=== PATIENT | male | born 1960 | race Caucasian/White ===

== ENCOUNTER 2017-02-27 05:50 | Day surgery (SDC) | payer OTHER ==
[2017-02-27] VITALS (8 sets, daily range): BP systolic 131–163; BP diastolic 61–81; PULSE 44–54; RESP 12–24; Ht 165.1 cm; Wt 64.0 kg
[~2017-02-27] VITALS: Ht 165.1 cm; Wt 64.0 kg
[2017-02-27] MEDS ORDERED: CLINDAMYCIN 600 MG/D5W (PMX) 50 ML IVPB SCH (06:00)
[2017-02-27] MEDS ORDERED: FER325 PO (07:43)
[2017-02-27] MEDS ORDERED: DICL50TA11 PO (07:43)
[2017-02-27] MEDS ORDERED: DICL75TA2 PO (07:43)
[2017-02-27] MEDS ORDERED: SOD CHLORIDE 0.9% 1,000 ML IV SCH (08:00)
[2017-02-27] MEDS ORDERED: POLYMYXIN/BACITRACIN 1L IRRIG ONE (09:50)
[2017-02-27] MEDS ORDERED: BUPIVACAINE 0.25% (MPF) 30 ML INJ ONE (09:50)
[2017-02-27] MEDS ORDERED: FENTAnyl 50 MCG/ML VIAL ONE (09:56)
[2017-02-27] MEDS ORDERED: LIDOCAINE 2% (SDV) 5 ML INJ ONE (09:57)
[2017-02-27] MEDS ORDERED: ROCURONIUM 50 MG INJ ONE (09:57)
[2017-02-27] MEDS ORDERED: PROPOFOL 20 ML ONE (09:57)
[2017-02-27] MEDS ORDERED: OXYCODONE/ACETAMINOPHEN (5/325) TAB PO PRN ×2 (10:00)
[2017-02-27] MEDS ORDERED: MEPERIDINE 25 MG INJ IV PRN (10:00)
[2017-02-27] MEDS ORDERED: METOCLOPRAMIDE 10 MG INJ IV PRN (10:00)
[2017-02-27] MEDS ORDERED: HYDROmorphONE (0.2 MG/ML) 10ML SYG IV PRN ×3 (10:00)
[2017-02-27] MEDS ORDERED: FENTAnyl 50 MCG/ML VIAL IV PRN ×3 (10:00)
[2017-02-27] MEDS ORDERED: EPHEDrine SULFATE 50 MG/5 ML SYG IV PRN (10:00)
[2017-02-27] MEDS ORDERED: hydrALAzine 20 MG INJ IV PRN (10:00)
[2017-02-27] MEDS ORDERED: DIPHENHYDRAMINE 50 MG INJ IV PRN (10:00)
[2017-02-27] MEDS ORDERED: KETOROLAC 30 MG INJ IV PRN (10:00)
[2017-02-27] MEDS ORDERED: LABETALOL HCL 20MG INJ IV PRN (10:00)
[2017-02-27] MEDS ORDERED: ONDANSETRON 4 MG INJ IV PRN (10:00)
[2017-02-27] MEDS ORDERED: BUPIVACAINE 0.25% (MPF) 30 ML INJ INJ ONE (10:28)
[2017-02-27] MEDS ORDERED: SUGAMMADEX SODIUM 200 MG/2 ML VIAL IV ONE (10:39)
[2017-02-27] MEDS ORDERED: HYDROCODONE/APAP (5/325) TAB PO ONE (11:00)
--- NOTE | 2017-02-27 11:01 | OPR ---
Date/Time of Note Date/Time of Note DATE: 02/27/17 TIME: 10:58 Operative Report Procedure Date: Feb 27, 2017 Preoperative Diagnosis left inguinal hernia Postoperative Diagnosis same Operation/Procedure Performed 1. open left incarcerated inguinal hernia repair with large ultrapro hernia system mesh 2. 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 He requests surgical repair. Risks alternatives benefits and personnel were discussed with the patient. Patient expresses understanding and consents to the operation. Procedure Description Patient is taken to the OR and prepped and draped in usual sterile fashion. Surgical timeout was performed. IV antibiotics given. Left inguinal oblique incision is made with a 10 blade. Dissection cautery is carried down to the external oblique fascia. 15 blade is used to open the external oblique. This incision is extended medially inferiorly lateral superiorly with Metzenbaum scissors. Cord structures were identified and encircled with a [place] drain. Very large indirect hernia is reduced manually. The distal portion of the ultrapure hernia system mesh was used to secure this area with a running 0 Prolene from the pubic tubercle along the shelving edge of the inguinal ligament. The disc is also secured to intra-oblique with interrupted 3-0 Vicryl. [place]lay mesh is secured in a similar fashion with a running 0 Prolene from the pubic tubercle along the shelving of the inguinal ligament. Superiorly the onlay mesh is secured to intra-oblique with interrupted 3-0 Vicryl. Structure creating reapproximated around the cord structures to re- create the inguinal ring with interrupted 0 Prolene. External oblique fascia is closed running 3-0 Vicryl. Naima's fascia is closed with interrupted 3-0 Vicryl. Skin is closed and skin trinh. Therapeutic subcutaneous local anesthesia is injected throughout the incision site. Dry dressings were applied. Reynold CASTRO Feb 27, 2017 11:01
== END 2017-02-27 13:13 | disposition home or self-care (01) ==
LOC: SDS 05:50
PROVIDERS: ATTEND Surgery
DX: K40.90 Unilateral inguinal hernia, without obstruction or gangrene, not specified as recurrent (principal); I10 Essential (primary) hypertension; K74.60 Unspecified cirrhosis of liver; M19.90 Unspecified osteoarthritis, unspecified site; Z88.0 Allergy status to penicillin
CPT/HCPCS: 49507; C1781; J1170; J2405; J3010; Z7512; Z7610

== ENCOUNTER 2017-03-06 09:58 | Emergency (ER) | payer OTHER ==
[~2017-03-06] VITALS: Ht 170.2 cm; Wt 61.1 kg
[~2017-03-06 09:58] MED LIST: DICL50TA11 PO; DICL75TA2 PO; FER325 PO
[2017-03-06 10:04] VITALS: Ht 170.2 cm; Wt 61.1 kg
[2017-03-06] MEDS ORDERED: HYDROmorphONE 1 MG/ML SYG IV STA (10:17)
[2017-03-06] MEDS ORDERED: ONDANSETRON 4 MG INJ IV STA (10:17)
[2017-03-06] MEDS ORDERED: LACTATED RINGER'S 1,000 ML IV ONE (10:30)
[2017-03-06] MEDS ORDERED: HYDR-906 PO (10:53)
[2017-03-06 10:54] LABS: BASOPHILS % 0.3 % (0.0-2.0); EOSINOPHILS # 0.1 10^3/ul (0.0-0.5); EOSINOPHILS % 0.6 % (0.0-7.0); HEMATOCRIT 33.2 % (42.0-52.0); HEMOGLOBIN 11.2 g/dl (14.0-18.0); LYMPHOCYTES # 1.6 10^3/ul (0.8-2.9); LYMPHOCYTES % 20.6 % (15.0-51.0); MEAN CORPUSCULAR HEMOGLOBIN 31.2 pg (29.0-33.0); MEAN CORPUSCULAR HGB CONC 33.7 g/dl (32.0-37.0); MEAN CORPUSCULAR VOLUME 92.5 fl (82.0-101.0); MEAN PLATELET VOLUME 8.6 fl (7.4-10.4); MONOCYTE # 0.5 10^3/ul (0.3-0.9); MONOCYTES % 6.8 % (0.0-11.0); NEUTROPHIL # 5.6 10^3/ul (1.6-7.5); NEUTROPHILS % 71.1 % (39.0-77.0); PLATELET COUNT 210 10^3/UL (140-415); RED BLOOD COUNT 3.59 10^6/ul (4.70-6.10); RED CELL DISTRIBUTION WIDTH 13.5 % (11.5-14.5); WHITE BLOOD COUNT 7.9 10^3/ul (4.8-10.8)
[2017-03-06 11:10] LABS: CALCIUM 9.1 mg/dl (8.4-10.2); CREATININE 0.74 mg/dl (0.61-1.24)
--- NOTE | 2017-03-06 11:24 | RADRPT ---
PROCEDURE: CT ABDOMEN AND PELVIS WITHOUT CONTRAST. CLINICAL INDICATION: Lower abdominal pain TECHNIQUE: CT scan of the abdomen and pelvis without contrast was performed on a multidetector hig h-resolution CT scanner. The patient was scanned without intravenous contrast. Coronal and sagittal reformatted images were obtained from the axial source images. Images were reviewed on a high-resol Bandwidth PACS workstation. The total exam CTDI equals 9.4 mGy and the total exam DLP equals 494 mGy-cm. One or more of the following dose reduction techniques were used: Automated exposure control. Adjustment of the mA and/or kV according to patient size. Use of iterative reconstruction technique. DICOM images are available COMPARISON: None FINDINGS: CT abdomen: The lung bases are clear. The heart size is within limits. There is no significant pericardial effus ion. Hepatic morphology is within limits. No gross contour deforming masses. Multiple gallstones are note d within the lumen of the gallbladder. No evidence of intrahepatic or extrahepatic biliary dilatatio n. The spleen and pancreas are within normal limits. Both adrenal glands are within normal limits. Both kidneys are in normal anatomic position. No evidence of obstruction or hydronephrosis. No gross renal/ureteric calculi. The visualized GI tract demonstrate normal caliber loops of small and large bowel. No evidence of lizzette wel obstruction. Stool filled loops of large bowel suggestive of constipation is identified. The lorin endix is within normal limits. Mild atherosclerotic calcification of the aorta is identified. There is no significant retroperitone al lymphadenopathy. CT pelvis: The bladder is within limits. The prostate gland is normal size. There is a 2.8 x 2.3 cm complex col lection, with adjacent hyperdensity within the left lower pelvis along the left external iliac chain , which appears to communicate with a large hyperdense mass, within the left anterior lower abdomen extending into the left inguinal canal, measuring 12.3 x 4.3 x 4.8 cm. Findings are likely consisten t with a large hematoma. Overlying lower abdominal surgical skin trinh are noted. There is diffuse atherosclerotic calcifications. 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 Osteoarthritic changes of the left hip is noted. There is multilevel degenerative disease of the lumbosacral spine. IMPRESSION: 1. LARGE 12.3 X 4.3 X 4.8 CM HYPERDENSE MASS WITHIN THE LOWER LEFT ANTERIOR ABDOMINAL WALL WITH OVER LYING SKIN TRINH, WHICH EXTENDS INTO THE LEFT INGUINAL CANAL, MOST LIKELY CONSISTENT WITH A LARGE HEMATOMA. CORRELATE WITH RECENT SURGICAL HISTORY. THERE IS ALSO A 2.8 X 2.3 CM COMPLEX COLLECTION WI TH ADJACENT HYPERDENSITY WITHIN THE LEFT LOWER PELVIS ALONG THE LEFT EXTERNAL ILIAC CHAIN, WHICH LORIN EARS TO COMMUNICATE WITH THE LEFT INGUINAL HEMATOMA, ALSO MOST LIKELY CONSISTENT WITH POSTSURGICAL C HANGES AND HEMATOMA. 2. Cholelithiasis. 3. No evidence of bowel obstruction. Stool and air filled loops of large bowel suggestive of constip ation. The appendix is within normal limits. 4. Diffuse atherosclerotic disease. 5. Severe osteoarthritis in 8 - necrosis of the right hip. Osteoarthritic changes the left hip. 6. Multilevel degenerative disease of the lumbosacral spine. RPTAT: AAPP Physician Sherif Date Time Electronically viewed and signed by Physician Sherif on 03/06/2017 11:24 NAM/
[2017-03-06 11:26] LABS: INR 1.19; PROTIME 15.2 Sec (12.2-14.2); PT RATIO 1.2
[2017-03-06 11:27] LABS: PARTIAL THROMBOPLASTIN TIME 33.6 Sec (25.0-35.0)
--- NOTE | 2017-03-06 11:33 | RADRPT ---
PROCEDURE: Scrotal ultrasound CLINICAL INDICATION: Scrotal pain and swelling. S/P left inguinal hernia repair. TECHNIQUE: Scrotal ultrasound was performed with sagittal and transverse views. Urias scale and co sav[place] imaging was performed. Images were reviewed on high resolution PACS monitors. COMPARISON: Concurrent CT scan performed the same day. FINDINGS: Right Testis: Size: 3.4 x 1.6 x 2.5 cm Echotexture: Normal. Color flow: Normal. Lesions: None. Left Testis: Size: 2.6 x 2.1 x 2.2 cm Echotexture: Normal. Color flow: Normal. Lesions: None. Right Epididymis: Size: Normal. Echotexture: Normal. Color flow: Normal. Lesions: None. Left Epididymis: Size: Engorged and enlarged. Echotexture: Diffusely heterogeneous. Color flow: Increased vascular flow. Lesions: None. Additional Findings: Hydrocele: Mild left Soft Tissues: Large left superior scrotal hematoma. Varicocele: None. IMPRESSION: 1. Large left superior scrotal hematoma. 2. Enlarged engorged heterogeneous left epididymis. 3. Mild left-sided hydrocele. RPTAT: PP .Tuan Alvares MD, MD Date Time Electronically viewed and signed by .Tuan Alvares MD, on 03/06/2017 11:32 .B/
--- NOTE | 2017-03-06 11:59 | ERD ---
ER Documentation Chief Complaint Chief Complaint hernia repair 02/27/17, abd pain, left right testicu pain/swelling x 3 days HPI This is a pleasant 56-year-old male who had a left inguinal hernia repair by Dr. Paz on 02/27. The patient presents with persistent swelling and pain to the left inguinal region and testicle. The pain is 6 out of 10 throbbing and worse with movement. He denies any fevers or chills, no nausea or vomiting. ROS All systems reviewed and are negative except as per history of present illness. Medications Home Meds Active Scripts Docusate Sodium* (Colace*) 100 Mg Capsule, 100 MG PO TID Y for CONSTIPATION, # 30 CAP Prov:STEPHANIE REGALADO MD 03/06/17 Ondansetron (Ondansetron Odt) 4 Mg Tab.rapdis, 4 MG PO Q6H Y for NAUSEA AND/OR VOMITING, #30 TAB Prov:STEPHANIE REGALADO MD 03/06/17 Hydrocodone/Acetaminophen ([place] 10-325 Tablet) 1 Each Tablet, 1 TAB PO Q6H Y for PAIN, #12 TAB Prov:STEPHANIE REGALADO MD 03/06/17 Reported Medications Hydrocodone/Acetaminophen ([place] 5-325 Tablet) 1 Each Tablet, 1 EACH PO Q6, TAB 03/06/17 Diclofenac Sodium* (Diclofenac Sodium*) 75 Mg Tablet.dr, 75 MG PO TID Y for PAIN , #90 TAB 02/27/17 Diclofenac Sodium* (Diclofenac Sodium*) 50 Mg Tablet.dr, 50 MG PO BID, #60 TAB 02/27/17 Ferrous Sulfate* (Ferrous Sulfate*) 325 Mg Tabec, 325 MG PO DAILY, TAB 02/27/17 Allergies Allergies: Coded Allergies: Penicillins (Verified Allergy, Unknown, RASH ALL OVER BODY, 03/06/17) PMhx/Soc History of Surgery: Yes (LT FOOT FRACTURE REPAIR, INGUINAL HERNIA REPAIR ) Anesthesia Reaction: No Hx Neurological Disorder: No Hx Respiratory Disorders: No Hx Cardiac Disorders: No Hx Psychiatric Problems: No Hx Miscellaneous Medical Probl: No Hx Alcohol Use: Yes (STOPPED 2 YRS AGO) Hx Substance Use: No Hx Tobacco Use: No Smoking Status: Never smoker FmHx Family History: No diabetes Physical Exam Vitals Vital Signs Date Time Temp Pulse Resp B/P Pulse Ox O2 Delivery O2 Flow Rate FiO2 03/06/17 10:04 97.6 65 18 108/73 98 Physical Exam General: Well developed, well nourished, no acute distress Head: Normocephalic, atraumatic. Eyes: Pupils equally reactive, EOM intact ENT: Moist mucous membranes Neck: Supple, no lymphadenopathy Respiratory: Lungs clear bilaterally, no distress Cardiovascular: RRR, no murmurs, rubs, or gallops Abdominal: Soft, left inguinal region, surgical wound is intact. There is a firm mass underneath the surgical site that appears to extend into the left scrotum no erythema or dehiscence, + ecchymoses noted. : Left scrotum with firmness into the scrotal sac, difficult to articulate the testicle. MSK: No edema, no unilateral swelling, 5/5 strength Neurologic: Alert and oriented, moving all extremities, normal speech, no focal weakness, no cerebellar signs Skin: No rash Psych: Normal mood Result Diagram: 03/06/17 1030 03/06/17 1030 Results 24 hrs Laboratory Tests Test 03/06/17 10:30 White Blood Count 7.910^3/ul Red Blood Count 3.5910^6/ul Hemoglobin 11.2g/dl Hematocrit 33.2% Mean Corpuscular Volume 92.5fl Mean Corpuscular Hemoglobin 31.2pg Mean Corpuscular Hemoglobin Concent 33.7g/dl Red Cell Distribution Width 13.5% Platelet Count 49326^3/UL Mean Platelet Volume 8.6fl Neutrophils % 71.1% Lymphocytes % 20.6% Monocytes % 6.8% Eosinophils % 0.6% Basophils % 0.3% Nucleated Red Blood Cells % 0.0/100WBC Neutrophils # 5.610^3/ul Lymphocytes # 1.610^3/ul Monocytes # 0.510^3/ul Eosinophils # 0.110^3/ul Basophils # 0.010^3/ul Nucleated Red Blood Cells # 0.010^3/ul Prothrombin Time 15.2Sec Prothrombin Time Ratio 1.2 INR International Normalized Ratio 1.19 Activated Partial Thromboplast Time 33.6Sec Sodium Level 140mmol/L Potassium Level 4.0mmol/L Chloride Level 100mmol/L Carbon Dioxide Level 27mmol/L Anion Gap 17 Blood Urea Nitrogen 14mg/dl Creatinine 0.74mg/dl Glucose Level 129mg/dl Calcium Level 9.1mg/dl Current Medications Medications (Trade) Dose Ordered Sig/Erick Route PRN Reason Start Time Stop Time Status Last Admin Dose Admin Hydromorphone HCl (Dilaudid) 1 mg ONCE STAT IV 03/06/17 10:17 03/06/17 10:19 DC 03/06/17 11:19 Ondansetron HCl 4 mg 4 mg ONCE STAT IV 03/06/17 10:17 03/06/17 10:19 DC 03/06/17 11:18 Lactated Ringer's (Lr) 1,000 ml @ 1,000 mls/hr Q1H ONCE IV 03/06/17 10:30 03/06/17 11:29 DC 03/06/17 11:19 Procedures/MDM EKG, MONITORS, & DIAGNOSTIC IMAGING: CT a/p IMPRESSION: 1. LARGE 12.3 X 4.3 X 4.8 CM HYPERDENSE MASS WITHIN THE LOWER LEFT ANTERIOR ABDOMINAL WALL WITH OVERLYING SKIN [id number], WHICH EXTENDS INTO THE LEFT INGUINAL CANAL, MOST LIKELY CONSISTENT WITH A LARGE HEMATOMA. CORRELATE WITH RECENT SURGICAL HISTORY. THERE IS ALSO A 2.8 X 2.3 CM COMPLEX COLLECTION WITH ADJACENT HYPERDENSITY WITHIN THE LEFT LOWER PELVIS ALONG THE LEFT EXTERNAL ILIAC CHAIN, WHICH APPEARS TO COMMUNICATE WITH THE LEFT INGUINAL HEMATOMA, ALSO MOST LIKELY CONSISTENT WITH POSTSURGICAL CHANGES AND HEMATOMA. 2. Cholelithiasis. 3. No evidence of bowel obstruction. Stool and air filled loops of large bowel suggestive of constipation. The appendix is within normal limits. 4. Diffuse atherosclerotic disease. 5. Severe osteoarthritis in 8 - necrosis of the right hip. Osteoarthritic changes the left hip. 6. Multilevel degenerative disease of the lumbosacral spine. RPTAT: AAPP US scrotum IMPRESSION: 1. Large left superior scrotal hematoma. 2. Enlarged engorged heterogeneous left epididymis. 3. Mild left-sided hydrocele. RPTAT: PP LAB INTERPRETATION: No leukocytosis, normal electrolytes MEDICAL DECISION MAKING: The patient presents with significant swelling and induration on the surgical site of the left inguinal hernia. This is possibly related to normal postoperative process, less clinical concern for abscess given no fever versus recurrence of hernia. The patient does have extension into the scrotum and I doubt acute testicular torsion but scrotal ultrasound would be reasonable. ER COURSE: The patient was given pain control medication. His laboratory testing shows no evidence of significant anemia or infection. CT imaging and ultrasound imaging shows evidence of a large hematoma. I would like to discuss the case with the surgeon, Dr. Oswald as this could be normal postoperative process however the hematoma significant and may benefit from evacuation. I am awaiting callback at this time. I spoke to Dr. Oswald who states that given the degree of the patient's hernia and the surgical procedure at this level hematoma is to be expected. He recommends warm compresses and pain control medication and outpatient follow-up. I believe this is reasonable. The patient was informed and will be discharged. His pain is well controlled. We discussed follow up with the patient's primary care doctor within 24 to 48 hours as needed. We also discussed return to the emergency room for worsening symptoms or worsening condition. Outpatient referral: dr oswald Discharge Medications: [place], Zofran, Colace We discussed the use of narcotics including avoidance of operating heavy machinery and driving as well as its addictive properties. Departure Diagnosis: Primary Impression: Hematoma Additional Impression: Postoperative pain Condition: Stable STEPHANIE REGALADO MD Mar 06, 2017 11:59
[2017-03-06] MEDS ORDERED: ONDA4TAB14 PO (12:45)
[2017-03-06] MEDS ORDERED: HYDR-902 PO (12:45)
[2017-03-06] MEDS ORDERED: DOCU-144 PO (12:45)
[2017-03-06 13:05] VITALS: BP 144/73; PULSE 52; RESP 16; TEMP 98.4
== END 2017-03-06 13:07 | disposition home or self-care (01) ==
LOC: E/R 09:58
DX: K91.870 Postprocedural hematoma of a digestive system organ or structure following a digestive system procedure (principal); R40.2252 Coma scale, best verbal response, oriented, at arrival to emergency department; G89.18 Other acute postprocedural pain; R40.2142 Coma scale, eyes open, spontaneous, at arrival to emergency department; R40.2362 Coma scale, best motor response, obeys commands, at arrival to emergency department
CPT/HCPCS: 36415; 74176; 76870; 80048; 85025; 85610; 85730; 96374; 96375; J1170; J2405; J7120; Z7502